=== PATIENT | female | born 1990 ===

== ENCOUNTER 2018-09-09 21:42 | Emergency (ER) | payer MEDICAID, OTHER ==
[2018-09-09 22:03] VITALS: RESP 18; TEMP 98.2
--- NOTE | 2018-09-09 22:51 | ED PDOC ---
Arrival/HPI - General Chief Complaint: Abdominal Pain Time Seen by Provider: 09/09/18 21:45 Historian: Patient - History of Present Illness Narrative History of Present Illness (Text): 09/09/18 22:48 28 year old female, who is 12 weeks , presents to the emergency department with vaginal bleeding. Patient states bleeding began 2 hours prior to arrival. Patient also informs of some lower abdominal pain. Patient informs she had a normal US one month prior. Patient states bleeding is not clotting. Patient denies any fevers, chills, headache, dizziness, chest pain, shortness of breath, cough, back pain, neck pain, or any other complaint. Time/Duration: 1-3 hours Symptom Onset: Gradual Symptom Course: Unchanged Activities at Onset: Light Context: Home Past Medical History - Provider Review Nursing Documentation Reviewed: Yes - Infectious Disease Hx of Infectious Diseases: None - Reproductive Currently : Yes - Cardiac Hx Cardiac Disorders: No - Pulmonary Hx Respiratory Disorders: No - Psychiatric Hx Substance Use: No Family/Social History - Physician Review Nursing Documentation Reviewed: Yes Family/Social History: No Known Family HX Smoking Status: Never Smoked Hx Alcohol Use: No Hx Substance Use: No Allergies/Home Meds Allergies/Adverse Reactions: Allergies No Known Allergies Allergy (Verified 09/09/18 22:03) Home Medications: Home Meds Medication Instructions Recorded Confirmed No Known Home Med 09/09/18 09/09/18 Review of Systems - Physician Review All systems were reviewed & negative as marked: Yes - Review of Systems Constitutional: absent: Fevers, Night Sweats Respiratory: absent: SOB, Cough Cardiovascular: absent: Chest Pain Gastrointestinal: Abdominal Pain Musculoskeletal: absent: Back Pain, Neck Pain Neurological: absent: Headache, Dizziness Physical Exam Vital Signs Reviewed: Yes Vital Signs Temp Pulse Resp BP Pulse Ox 09/09/18 22:02 98.2 F 70 18 112/65 100 Temperature: Afebrile Blood Pressure: Normal Pulse: Regular Respiratory Rate: Normal Appearance: Positive for: Well-Appearing, Non-Toxic, Comfortable Pain Distress: None Mental Status: Positive for: Alert and Oriented X 3 - Systems Exam Head: Present: Atraumatic, Normocephalic Pupils: Present: PERRL Extroacular Muscles: Present: EOMI Conjunctiva: Present: Normal Mouth: Present: Moist Mucous Membranes Neck: Present: Normal Range of Motion Respiratory/Chest: Present: Clear to Auscultation, Good Air Exchange. No: Respiratory Distress, Accessory Muscle Use Cardiovascular: Present: Regular Rate and Rhythm, Normal S1, S2. No: Murmurs Abdomen: Present: Tenderness (Mild superpubic tendereness). No: Distention, Peritoneal Signs Back: Present: Normal Inspection Upper Extremity: Present: Normal Inspection. No: Cyanosis, Edema Lower Extremity: Present: Normal Inspection. No: Edema Neurological: Present: GCS=15, CN II-XII Intact, Speech Normal Skin: Present: Warm, Dry, Normal Color. No: Rashes Psychiatric: Present: Alert, Oriented x 3, Normal Insight, Normal Concentration Medical Decision Making ED Course and Treatment: 09/09/18 22:53 Impression: 28 year old female, presents with vaginal bleeding. Plan: -- Labs -- Urine Culture -- Urinalysis -- Transvaginal US -- Reassess and disposition Prior Visits: Notes and results from previous visits were reviewed. Progress Notes: Labs reviewed : Beta quant [id number] US TV : 7 weeks, 5 days, positive gestational sac positive yolk sac positive pole, no heart motion detected, as per US tech report. On reevaluation, patient remains awake alert and oriented 3 in no acute distress. Reports no increase in vaginal bleeding. Diagnostic results d/w the patient, she was notified that there is an IUP but without a FHR. Advised that she will need a repeat US and labs as an outpatient. Advised to follow up with OB in 1-2 days without fail. Return to the emergency room at any time for any new or worsening symptoms. Patient states she fully agrees with and understands discharge instructions. States that she agrees with the plan and disposition. Verbalized and repeated discharge instructions and plan. I have given the patient opportunity to ask any additional questions. 09/10/18 00:54 Obstetric ultrasound, transvaginal. Indication: Pelvic pain and spotting. Technique: Real-time ultrasound images were obtained. Findings: The uterus measures 11.4x6.6x8.8 cm. Retroverted uterus. Unremarkable cervix. Intrauterine gestational sac measuring 2.9 cm. This corresponds to an estimated gestational age of 7 weeks and 5 days. pole is noted measuring 0.7 cm. No cardiac activity is identified. This corresponds to an estimated gestational age of 6 weeks and 4 days. Right ovarian corpus luteum cyst measuring 1.2 cm. Impression: Single intrauterine pole. No cardiac activity. Right ovarian corpus luteum cyst. - RAD Interpretation Radiology Orders: 09/09/18 22:08 TRANSVAGINAL [US] Stat - PA / [employer] / Resident Statement MD/DO has reviewed & agrees with the documentation as recorded. - Scribe Statement The provider has reviewed the documentation as recorded by the Jeanaibe Papo Landeros Provider Scribe Attestation: All medical record entries made by the Scribe were at my direction and personally dictated by me. I have reviewed the chart and agree that the record a ccurately reflects my personal performance of the history, physical exam, medical decision making, and the department course for this patient. I have also personally directed, reviewed, and agree with the discharge instructions and disposition. Disposition/Present on Arrival - Present on Arrival Any Indicators Present on Arrival: No History of DVT/PE: No History of Uncontrolled Diabetes: No Urinary Catheter: No History of Decub. Ulcer: No History Surgical Site Infection Following: None - Disposition Have Diagnosis and Disposition been Completed?: Yes Diagnosis: Threatened Disposition: HOME/ ROUTINE Disposition Time: 00:45 Patient Plan: Discharge Patient Problems: Current Active Problems Problem Status Onset Threatened Acute Condition: STABLE Discharge Instructions (ExitCare): Threatened Miscarriage (DC), Bleeding With (DC) Print Language: UGANDAN Additional Instructions: Thank you for letting us take care of you today. You were treated for threatened miscarriage. The emergency medical care you received today was directed at your acute symptoms. If you were prescribed any medication, please fill it and take as directed. It may take several days for your symptoms to resolve. Return to the Emergency Department if your symptoms worsen, do not improve, or if you have any other problems. Please call the clinic in 2 days for re-evaluation and follow up. Bring any paperwork you were given at discharge with you along with any medications you are taking to your follow up visit. Our treatment cannot replace ongoing medical care by a primary care provider (PCP) outside of the emergency department. Thank you for allowing the [facility] team to be part of your care today. If you had an US: A Radiologist will review the ED reading if any change in treatment is needed we will contact you. If you had a urine culture: It will take several days for the results, if any change in treatment is needed we will contact you. Your blood work today showed your beta quant : [id number]. Your US today showed : +7 weeks, 5 days, with +gestational sac, +yolk sac, + pole, however no heart motion detected. Follow up US results with OB doctor without fail. Consider outpatient repeat labs and US. Referrals: PCP,NO [Primary Care Provider] - Follow up with primary [facility] [Outside] - [facility] with [facility] [Outside] - Follow up with primary [facility] [Outside] - Follow up with primary Forms: [facility] (Japanese), WORK NOTE
[2018-09-09 23:01] LABS: BASO # 0.02 K/mm3 (0.0-2.0); BASO % 0.3 % (0.0-3.0); EOS # 0.1 (0.0-0.7); HEMOGLOBIN 11.5 g/dL (12.0-16.0); LYMPH # 1.8 (1.2-3.4); LYMPH % 28.9 % (22.0-35.0); MEAN CELL VOLUME 87.7 fl (80.0-105.0); MEAN PLATELET VOLUME 9.6 fl (7.0-11.0); MONO # 0.3 (0.1-0.6); MONO % 4.7 % (1.0-6.0); RBC 3.97 10^6/uL (3.5-6.1); RED CELL DISTRIBUTION WIDTH 12.1 % (11.5-14.5); WHITE BLOOD COUNT 6.4 10^3/uL (4.5-11.0)
[2018-09-09 23:03] LABS: INR 1.08; PARTIAL THROMBOPLASTIN TIME 32.5 Seconds (26.9-38.3)
[2018-09-09 23:04] LABS: ALB/GLOB RATIO 1.4 (1.1-1.8); ALBUMIN 4.6 g/dL (3.0-4.8); ALT/SGPT 20 U/L (7-56); AST/SGOT 33 U/L (14-36); BLOOD UREA NITROGEN 9 mg/dL (7-21); CALCIUM 10.3 mg/dL (8.4-10.5); GFR NON-AFRICAN AMERICAN > 60
[2018-09-09 23:10] LABS: URINE BILIRUBIN NEGATIVE (NEGATIVE); URINE BLOOD TRACE-INTACT (NEGATIVE); URINE GLUCOSE (UA) NEGATIVE (NEGATIVE); URINE LEUKOCYTE ESTERASE NEGATIVE Leu/uL (NEGATIVE); URINE PROTEIN NEGATIVE mg/dL (<30 mg/dL); URINE UROBILINOGEN 0.2 E.U./dL (<1 E.U./dL)
[2018-09-09 23:13] LABS: URINE APPEARANCE CLEAR (CLEAR); URINE COLOR YELLOW (YELLOW)
[2018-09-09 23:37] LABS: URINE EPITHELIAL CELLS 0 - 2 /hpf (0-5); URINE RBC 0 - 2 /hpf (0-2); URINE WBC 0 - 2 /hpf (0-6)
[2018-09-10 01:46] VITALS: BP 115/68; PULSE 75; O2SAT 99
--- NOTE | 2018-09-10 10:33 | US ---
Date of service: 09/09/2018 PROCEDURE: OB Pelvic Ultrasound HISTORY: vag bleeding 12 wks preg 06/15/2018 COMPARISON: None available. FINDINGS: UTERUS: Gestational sac: Gestational sac diameter 29 mm equivalent to 7 weeks 5 days gestational age. [place]-rump length 7 mm equivalent to 6 weeks 4 days. Heart rate: Not detectable age (Ultrasound estimated): 7 weeks 1 day Kerri-gestational hemorrhage: None. Date of delivery (Ultrasound estimated) : 04/27/2019 Uterus measures 11.4 x 6.6 x 8.0 cm. Normal in size and appearance. CERVIX: Cervix is closed. Cervical length was not measured by the technologist at this time. RIGHT OVARY: Measures 2.8 x 2.1 x 2.3 cm. No mass lesion. Normal flow. Simple cyst, 1.2 cm. Presumed physiologic. LEFT OVARY: Measures 2.7 x 1.8 x 2.1 cm. No solid mass. Normal flow. FREE FLUID: None. OTHER FINDINGS: None. IMPRESSION: Intrauterine gestation of approximately 7 weeks 1 day without detectable cardiac activity. Consistent with demise. The preliminary findings for this examination were reported by [facility] at 12:50 a.m. on 09/10/2018. There is concurrence of this report with the preliminary findings.
== END 2018-09-10 01:30 | disposition home or self-care (01) ==
LOC: ED 21:42
DX: O20.0 Threatened abortion (principal); Z3A.12 12 weeks gestation of pregnancy